=== PATIENT | female | born 1965 | race Caucasian/White ===

== ENCOUNTER 2016-04-25 16:29 | Outpatient (CLI) | payer OTHER | END 2016-04-25 16:30 | disposition home or self-care (01) | DX: R05 Cough (principal) ==

== ENCOUNTER 2016-09-21 08:05 | Outpatient (CLI) | payer OTHER ==
[2016-09-21 12:54] LABS: BASOPHILS % (AUTO) 0.4 %; EOSINOPHILS # (AUTO) 0.1 10^3/uL (0.0-0.7); EOSINOPHILS % (AUTO) 1.7 %; HCT - HEMATOCRIT 42.4 % (37.0-47.0); HGB - HEMOGLOBIN 14.4 g/dL (12.0-16.0); LYMPHOCYTES # (AUTO) 1.8 10^3/uL (1.5-3.5); LYMPHOCYTES % (AUTO) 37.3 %; MEAN CORPUSCULAR HEMOGLOBIN 30.8 pg (27.0-31.0); MEAN CORPUSCULAR HGB CONC 34.1 g/dL (32.0-36.0); MEAN CORPUSCULAR VOLUME 90.5 fL (81.0-99.0); MEAN PLATELET VOLUME 7.4 fL (7.9-10.8); MONOCYTES # (AUTO) 0.4 10^3/uL (0.0-1.0); MONOCYTES % (AUTO) 9.3 %; NEUTROPHILS # (AUTO) 2.4 10^3/uL (1.5-6.6); NEUTROPHILS % (AUTO) 51.3 %; NUCLEATED RED BLOOD CELLS AUTO 0.1 /100WBC; RED BLOOD COUNT 4.69 10^6/uL (4.20-5.40); RED CELL DISTRIBUTION WIDTH 13.4 % (12.0-15.0); UNCORRECTED WHITE BLOOD COUNT 4.7 x10^3/uL; WHITE BLOOD COUNT 4.7 x10^3/uL (4.8-10.8)
[2016-09-21 13:29] LABS: ALBUMIN/GLOBULIN RATIO 1.7 (1.0-2.2); BILIRUBIN,TOTAL 0.6 mg/dL (0.2-1.0); BUN - BLOOD UREA NITROGEN 21 mg/dL (6-20); CALCIUM 9.2 mg/dL (8.5-10.3); CARBON DIOXIDE - CO2 20 mmol/L (21-32); CHLORIDE 113 mmol/L (101-111); CHOL/HDL RATIO 2.8 (<4.4); CHOLESTEROL 155 mg/dL; CREATININE 0.9 mg/dL (0.4-1.0); GFR - MDRD 66 (>89); GLUCOSE 102 mg/dL (70-100); HDL CHOLESTEROL 56 mg/dL; LDL/HDL RATIO 1.6 (<4.4); POTASSIUM 3.7 mmol/L (3.5-5.0); SODIUM 140 mmol/L (135-145); TRIGLYCERIDES 56 mg/dL; VLDL CHOLESTEROL 11 mg/dL
== END 2016-09-21 08:06 ==
LOC: LAB.N 08:05
PROVIDERS: ATTEND Physician Assistant Medical
DX: Z00.00 Encounter for general adult medical examination without abnormal findings (principal); Z79.899 Other long term (current) drug therapy
CPT/HCPCS: 36415; 80053; 80061; 82306; 84443; 85025

== ENCOUNTER 2016-10-20 07:25 | Outpatient (CLI) | payer OTHER ==
--- NOTE | 2016-10-21 10:26 | Ultrasound Report ---
PELVIC ULTRASOUND WITH TRANSVAGINAL EXAM: 10/20/2016 Patient has right lower quadrant pain. TECHNIQUE: Transabdominal pelvic ultrasound performed for global evaluation. Transvaginal pelvic ul trasound performed for detailed evaluation. Real-time scanning performed and static images obtained. FINDINGS: Uterus has been removed. Right ovary measures 1.9 cm x 0.9 cm x 1.5 cm for a volume of 1.34 mL. Left ovary measures 1.8 cm x 1.0 cm x 1.3 cm for a volume of 1.22 mL. Both ovaries are normal in parenchymal pattern and appear mildly atrophic. IMPRESSION: PAST HISTORY OF A HYSTERECTOMY. BOTH OVARIES WERE WELL VISUALIZED AND NORMAL FOR PATIENT'S AGE. EACH OVARY APPEARS TO SHOW POSTMENOP AUSAL ATROPHY. JOB #: [id number] EXT JOB #:
== END 2016-10-20 07:26 | disposition home or self-care (01) ==
LOC: DI 07:25
PROVIDERS: ATTEND Physician Assistant Medical
DX: R10.31 Right lower quadrant pain (principal); Z90.710 Acquired absence of both cervix and uterus
CPT/HCPCS: 76830; 76856

== ENCOUNTER 2016-10-20 07:29 | Outpatient (CLI) | payer OTHER ==
--- NOTE | 2016-10-24 07:33 | Mammography Report ---
DIGITAL SCREENING MAMMOGRAM: 10/20/2016 CLINICAL INDICATION: A 50-year-old nulliparous patient with family history of breast cancer, for scre ening. COMPARISON: 10/2015, 09/2014, 06/2013, 12/2009, 11/2008, 10/2007. TECHNIQUE: Routine CC and MLO projections were obtained of the breasts. FINDINGS: The breasts again demonstrate scattered fibroglandular densities bilaterally. Punctate, ty pically benign calcifications are present. In the left upper outer central breast, there is a possibl e developing density. Further evaluation with spot compression views and possible ultrasound is recom mended. No mammographically suspicious findings are appreciated in the right breast. IMPRESSION: INCOMPLETE EXAMINATION. RECOMMENDATION: ADDITIONAL EVALUATION OF THE LEFT BREAST ABOVE. BIRADS CATEGORY 0-INCOMPLETE. STANDARD QUALIFYING STATEMENTS 1. This examination was reviewed with the aid of Computer-Aided Detection (CAD). 2. A negative or benign imaging report should not delay biopsy if clinically suspicious findings are present. Consider surgical consultation if warranted. More than 5% of cancers are not identified by i maging. 3. Dense breasts may obscure an underlying neoplasm. JOB #: [id number] EXT JOB #:[id number]
== END 2016-10-20 07:30 | disposition home or self-care (01) ==
LOC: DI 07:29
PROVIDERS: ATTEND Physician Assistant Medical
DX: Z12.31 Encounter for screening mammogram for malignant neoplasm of breast (principal); R92.8 Other abnormal and inconclusive findings on diagnostic imaging of breast; Z80.3 Family history of malignant neoplasm of breast
CPT/HCPCS: 77067

== ENCOUNTER 2016-11-16 11:00 | Outpatient (CLI) | payer OTHER ==
--- NOTE | 2016-11-17 09:00 | Ultrasound Report ---
REVISED: THIS REPORT WAS ORIGINALLY SIGNED ON 11/18/16 @ 1548. ORDERS LINKED ON 11/23/2016. LEFT BREAST DIGITAL DIAGNOSTIC MAMMOGRAM LEFT BREAST ULTRASOUND 11/16/2016 CLINICAL HISTORY: Asymptomatic 50-year-old female recalled from a screening mammogram 10/20/2016, for developing left breast asymmetry. The patient has a history of breast reduction. Family history of a mother with premenopausal breast cancer. MAMMOGRAM TECHNIQUE: Spot CC, ML, rolled, and true lateral views obtained. MAMMOGRAM FINDINGS: There is an irregular spiculated mass in the lateral anterior position spanning approximately 5 mm in maximal dimension. ULTRASOUND TECHNIQUE: A high frequency transducer was utilized to evaluate the lateral hemisphere. Instructor Flying static images obtained. FINDINGS: There is a hypoechoic, minimally-vascular, solid mass in the 3:30 axis, 4 cm from the nipple, measuring approximately 5 x 3 x 4 mm. This appears to correspond to the mammographic finding. --------- IMPRESSION: (BASED ON LEFT BREAST MAMMOGRAM AND ULTRASOUND) SUSPICIOUS FINDING. (BIRADS CATEGORY: 4) RECOMMENDATION: TARGETED PATHOLOGIC EVALUATION IS RECOMMENDED WITH ULTRASOUND GUIDANCE. NOTE: Follow-up post biopsy mammography is necessary to confirm correlation between the ultrasound and mammographic findings. Results and recommendations discussed with the patient. The office of Denise Mclean PA-C notified. Biopsy scheduled for 11/22/2016. STANDARD QUALIFYING STATEMENTS 1. This examination was reviewed with the aid of Computed-Aided Detection (CAD) . 2. A negative or benign imaging report should not delay biopsy if clinically suspicious findings are present. Consider surgical consultation if warranted. More than 5% of cancers are not identified by imaging. 3. Dense breasts may obscure an underlying neoplasm. JOB #: [id number] EXT JOB #: [id number] RENEE
== END 2016-11-16 11:01 | disposition home or self-care (01) ==
LOC: DI 11:00
PROVIDERS: ATTEND Physician Assistant Medical
DX: N63 Unspecified lump in breast (principal); Z80.3 Family history of malignant neoplasm of breast
CPT/HCPCS: 76642

== ENCOUNTER 2016-11-22 09:33 | Outpatient (CLI) | payer OTHER ==
--- NOTE | 2016-11-22 11:40 | Ultrasound Report ---
ULTRASOUND-GUIDED CORE NEEDLE BIOPSY LEFT BREAST NODULE: 11/22/2016 CLINICAL INDICATION: A 3-mm nodule at the 3:30 position of the left breast. FINDINGS: Informed consent was obtained. Using standard aseptic technique, both 1% buffered lidocai ne and Sensorcaine were injected into the left breast for local anesthesia. A small lauri was made in the skin with a #11 blade. A 12-gauge Celero vacuum-assisted device was used to obtain five specime ns. A Celero marker was placed in the biopsy cavity under ultrasound guidance. The patient was taken to a separate mammography machine, and a two-view digital mammogram was performed, documenting the marke r in the expected location and no significant post-biopsy hematoma. Of note, the mammographic and so nographic abnormalities do correlate. The wound was dressed and ice applied. The patient was observed for approximately 15 minutes, then w as discharged from [facility] in good condition following instructions on wound care and obta ining biopsy results. The patient was sent for histologic analysis. IMPRESSION: ULTRASOUND-GUIDED CORE NEEDLE BIOPSY OF THE LEFT BREAST. AN ADDENDUM WILL BE MADE TO THIS REPORT WHEN PATHOLOGY IS REVIEWED TO ESTABLISH CONCORDANCE. JOB #: [id number] EXT JOB #:[id number]
[2016-11-22 11:44] VITALS: BP 122/79
[2016-11-22] MEDS ORDERED: BUPIVACAINE 0.5%-EPI 1:200000 PF 10 ML VIAL SUBQ ONE (15:14)
[2016-11-22] MEDS ORDERED: BUFFERED LIDOCAINE 10 ML SYRINGE IU ONE (15:14)
== END 2016-11-22 09:34 | disposition home or self-care (01) ==
LOC: DI 09:33
PROVIDERS: ATTEND Physician Assistant Medical
DX: C50.912 Malignant neoplasm of unspecified site of left female breast (principal); Z17.0 Estrogen receptor positive status [ER+]
CPT/HCPCS: 19083

== ENCOUNTER 2016-12-12 07:52 | Outpatient (CLI) | payer OTHER ==
[2016-12-12] MEDS ORDERED: GADOBUTROL 10 MMOL/10 ML VIAL IVP ONE (08:46)
--- NOTE | 2016-12-12 12:48 | MRI Report ---
MRI BILATERAL BREASTS WITH AND WITHOUT CONTRAST: 12/12/2016 CLINICAL INDICATION: Newly diagnosed left breast cancer. TECHNIQUE: Using a dedicated breast coil, axial precontrast STIR, T1, dynamic postcontrast axial 3D images, axial 3D high-resolution images, and postcontrast diffusion-weighted images were obtained; 9 mL of Gadavist was administered intravenously. Postprocessing with dynamic contrast enhancement anal ysis and multiplanar reformations were performed with Greetz. FINDINGS: The breasts demonstrate minimal background parenchymal enhancement. RIGHT BREAST: No suspicious mass or abnormal enhancement is appreciated. Right axillary lymph nodes appear morphologically normal. LEFT BREAST: In the left central slightly lower outer breast, a focus of abnormal enhancement is see n, correlating with the site of the biopsy. The abnormal enhancement measures 9 x 5 x 6 mm, but this likely includes some postbiopsy changes. The abnormal enhancement demonstrates medium progressive p lateau uptake. The left axillary lymph nodes appear morphologically normal. There is no evidence of skin, nipple, or chest wall involvement. IMPRESSION: 1. BIOPSY-PROVEN LEFT BREAST CANCER, WITHOUT EVIDENCE OF SKIN, NIPPLE, OR CHEST WALL INVOLVEMENT. 2. NO EVIDENCE OF MULTICENTRIC OR MULTIFOCAL DISEASE. RECOMMENDATION: Surgical consultation for treatment planning. BI-RADS CATEGORY 6: Known malignancy. The patient has been instructed to obtain results from [facility] in 5 business days. COMMENT: Breast MRI is a highly sensitive examination, and has a cancer detection threshold down to approximately 5 mm; however, it only has moderate specificity. Although breast MRI has a high negati ve predictive value, appropriate clinical and mammographic followup are always necessary. MRI may mi ss less angiogenic tumors; therefore, it should not be used to avoid a biopsy which is otherwise clin ically indicated. Normal-appearing lymph nodes may contain microscopic tumor. Due to prone position ing, the described location of findings may differ from other modalities. JOB #: [id number] EXT JOB #:[id number]
== END 2016-12-12 07:53 | disposition home or self-care (01) ==
LOC: DI 07:52
PROVIDERS: ATTEND Physician Assistant Medical
DX: C50.512 Malignant neoplasm of lower-outer quadrant of left female breast (principal)
CPT/HCPCS: 77059; A9585

== ENCOUNTER 2017-01-09 07:53 | Day surgery (SDC) | payer OTHER ==
[~2017-01-09 07:53] MED LIST: ceFAZolin 2 GM/50 ML 2 GM/50 ML BAG IV ONE
[2017-01-09] MEDS ORDERED: LACTATED RINGERS 1,000 ML IV ONE (08:18)
[2017-01-09] MEDS ORDERED: BUPIVACAINE 0.5%-EPI 1:200000 PF 10 ML VIAL SUBQ ONE (10:26)
[2017-01-09] MEDS ORDERED: BUFFERED LIDOCAINE 10 ML SYRINGE IU ONE (10:26)
--- NOTE | 2017-01-09 11:09 | Nuclear Medicine Report ---
LEFT BREAST INJECTION FOR SENTINEL LYMPH NODE IDENTIFICATION: 01/09/2017 CLINICAL INDICATION: Left breast cancer. FINDINGS: A total of 1.6 mCi technetium-99m filtered sulfur colloid in buffered lidocaine was inject ed into the left subareolar breast for sentinel lymph node identification. Due to camera malfunction , no images were obtained. IMPRESSION: LEFT BREAST INJECTION FOR SENTINEL LYMPH NODE IDENTIFICATION. JOB #: [id number] EXT JOB #:[id number]
[2017-01-09] MEDS ORDERED: BUPIVACAINE 0.5%-EPI 1:200000 PF 30 ML VIAL SUBQ ONE (11:50)
[2017-01-09] MEDS ORDERED: LIDOCAINE 1% 50 ML MDV SUBQ ONE (11:50)
[2017-01-09] MEDS ORDERED: KETOROLAC 30 MG/ML VIAL IVP ONE (12:30)
[2017-01-09] MEDS ORDERED: DEXAMETHASONE 10 MG/ML VIAL IVP ONE (12:30)
[2017-01-09] MEDS ORDERED: PROPOFOL 200 MG/20 ML VIAL IVP ONE (12:30)
[2017-01-09] MEDS ORDERED: LIDOCAINE-MPF 2% 5 ML VIAL IM ONE (12:30)
[2017-01-09] MEDS ORDERED: ONDANSETRON 4 MG/2 ML VIAL IVP ONE (12:30)
[2017-01-09] MEDS ORDERED: fentaNYL 100 MCG/2 ML VIAL IVP ONE (12:30)
[2017-01-09] MEDS ORDERED: METOCLOPRAMIDE 10 MG/2 ML VIAL IVP ONE (12:30)
[2017-01-09] MEDS ORDERED: ceFAZolin 2 GM/50 ML BAG IV ONE (12:30)
--- NOTE | 2017-01-09 14:31 | Mammography Report ---
LEFT MAMMOGRAPHICALLY GUIDED WIRE NEEDLE LOCALIZATION: 01/09/2017 CLINICAL INDICATION: Left breast cancer. FINDINGS: Following obtaining informed consent, the patient's left breast was positioned from a late ral approach. Buffered lidocaine and Marcaine were injected for local anesthesia. A 5-cm [place] need le was placed at the site of concern. Needle positioning was confirmed, the needle secured, and the patient was transferred to the operating room in stable condition. SPECIMEN RADIOGRAPH: Specimen radiograph initially demonstrated inclusion of the hookwire, but not t he marker. Findings were discussed with Dr. Wiggins in the operating room, and a second specimen wa s obtained, which again did not demonstrate the marker. The initial specimen appears to contain the primary carcinoma. Position was noted on the pathology request, and both specimens were submitted. IMPRESSION: WIRE LOCALIZATION OF LEFT BREAST LESION. THE BIOPSY MARKER WAS NOT INCLUDED IN THE INIT IAL SPECIMEN OR THE FOLLOWUP SPECIMEN. FINDINGS DISCUSSED WITH DR. WIGGINS IN THE OPERATING ROOM. JOB #: [id number] EXT JOB #:[id number]
[2017-01-09 14:38] VITALS: BP 131/76
--- NOTE | 2017-01-10 13:24 | OPERATIVE REPORT ---
DATE OF SURGERY: 01/09/2017 00:00:00 SURGEON: Anila Wiggins MD. ANESTHESIA: General. PREOPERATIVE DIAGNOSIS: Left breast invasive cancer. POSTOPERATIVE DIAGNOSES: Left breast invasive cancer. INDICATION FOR PROCEDURE: Left breast cancer. PROCEDURE PERFORMED: Left sentinel lymph node biopsy and left wire localization partial mastectomy. FINDINGS: After obtaining informed consent from the patient and after her undergoing sentinel lymph node mapping and needle localization, she was brought into the operating room and positioned on the operating table in the supine position, taking note of pressure points. She was intubated by Anesthesia. She was administered perioperative antibiotics. A time-out was then taken according to protocol, and 5 mL of Methylene blue was injected in the periareolar region and the breast massaged for 5 minutes. She was then prepped and draped in the usual sterile fashion. An infra-axillary 3 cm incision was created and deepened down through the subcutaneous tissue through the clavipectoral fascia. The axillary fat pad was encountered. The NeoProbe was utilized to encounter positive lymph nodes. No blue dye was seen; however, the patient did have a breast reduction in the distant past and this could have affected the flow of methylene blue. Three sentinel lymph nodes were found and were passed off as specimens. None were noted to be blue. All were noted to be NeoProbe positive. The axilla was then palpated for any enlarged lymph nodes and none were found. The axilla was then packed and attention turned towards the left breast. Her lesion was noted to be in the 3:30 position, 4 cm from the nipple. This was marked out and the planned incision was marked. A rhomboid shaped skin incision was created overlying the site of the cancer. A 15 blade was used to make my incision. I then worked my way down through the breast tissue creating skin flaps circumferentially. The wire was then encountered inferiorly. The needle was removed from the wire and the wire withdrawn into the incision. I then continued to circumferentially dissect around the wire down to the level of the pectoralis fascia. The entire specimen was then removed and was marked with a long stitch placed laterally and a short medially. It was passed off for mammographic confirmation of the lesion. Upon evaluation mammographically, the lesion correlating with the malignancy was seen; however, no clip was identified. I reinspected the operative field, palpating to try to feel for the clip and was unable to do so. The ultrasound was then brought into the operating room to attempt to identify the site of the clip, and this again was unsuccessful. The margin inferior and medial to the previous lumpectomy site was dissected further, as this was likely my closest margin. An additional tissue sample was removed and marked it with a long strand laterally and short strand medially and passed off. Mammography did not demonstrate any clip in the specimen. After careful inspection of the cavity, I was unable to find any clip. This cavity was copiously irrigated and hemostasis was noted to be achieved. Both incisions were then closed. The axillary incision was closed with 3-0 Vicryl and 4-0 Monocryl. The breast incision was closed with 3-0 vicryl and 4-0 monocryl. Dermabond was applied. The patient was extubated and taken to the recovery room in stable condition. ESTIMATED BLOOD LOSS: 5 mL. COMPLICATIONS: None. SPECIMENS: Three axillary sentinel lymph nodes and left partial mastectomy. POSTOPERATIVE DIAGNOSIS: Invasive breast cancer. JOB #: [id number] EXT JOB #:[id number] RENEE
== END 2017-01-09 07:54 | disposition home or self-care (01) ==
LOC: DI 07:53
PROVIDERS: ATTEND Surgery
PROC: 07B60ZX Excision of Left Axillary Lymphatic, Open Approach, Diagnostic (ICD-10-PCS; 2017-01-09)
PROC: 0HBU0ZZ Excision of Left Breast, Open Approach (ICD-10-PCS; principal; 2017-01-09 11:00)
DX: C50.512 Malignant neoplasm of lower-outer quadrant of left female breast (principal); Z17.0 Estrogen receptor positive status [ER+]; I10 Essential (primary) hypertension
CPT/HCPCS: 19281; 19301; 38525; 76098; 78195; A9541; J0690; J7120

== ENCOUNTER 2017-01-30 09:05 | Emergency (ER) | payer OTHER ==
[2017-01-30 09:16] VITALS: BP 198/84
--- NOTE | 2017-01-30 10:07 | ED Physician Documentation ---
History of Present Illness - Stated complaint Stated Complaint: POST SURG COMPLICATION - Chief complaint Chief Complaint: Wound - Additonal information Additional information: hx from pt 51 f s/p L lumpectomy 01/[address]iggins has been doing well today incision opened and there was bloody drainage no fever otherwise feeling well went to surgical office and was advised no doctors in today went to PMD office and was advised to come to the ER Review of Systems Constitutional: denies: Fever Skin: reports: Laceration (s) PD PAST MEDICAL HISTORY - Past Medical History Past Medical History: Yes Cardiovascular: High cholesterol Respiratory: Asthma, Pneumonia Neuro: Other Endocrine/Autoimmune: None GI: Colon polyps : None HEENT: Chronic vision loss, Chronic sinusitis Psych: None Musculoskeletal: Osteoarthritis Derm: Rosacea Other Past Medical History: intracrainial HTN, Breast CA - Past Surgical History Past Surgical History: Yes General: Colonoscopy /PREPARED FOODS ASSOCIATE: Hysterectomy, Breast reduction, Other HEENT: Tonsil/Adenoidectomy - Present Medications Home Medications: Ambulatory Orders Medication Instructions Recorded Confirmed Cholecalciferol (Vitamin D3) 4,000 unit PO DAILY 12/10/15 01/24/17 [Vitamin D3] Doxycycline Monohydrate 50 mg PO DAILY 12/10/15 01/24/17 Pravastatin [Pravachol] 10 mg PO DAILY 12/10/15 01/24/17 acetaZOLAMIDE ER [Diamox ER] 500 mg PO BID 12/10/15 01/24/17 Cyanocobalamin (Vitamin B-12) 2,000 mcg PO DAILY PM 01/03/17 01/24/17 [Vitamin B-12] Albuterol 2.5 mg INH Q4H PRN 01/04/17 01/24/17 Epinephrine [Epipen 2-Yan] 1 each IM PRN PRN 01/04/17 01/24/17 - Allergies Allergies/Adverse Reactions: Allergies Allergy/AdvReac Type Severity Reaction Status Date / Time azithromycin [From Zithromax] Allergy Itching Verified 01/09/17 08:12 bee venom protein (honey bee) Allergy Unknown Verified 01/04/17 15:22 dust AdvReac Unknown Uncoded 01/04/17 15:22 mold AdvReac Unknown Uncoded 01/04/17 15:22 - Social History Does the pt smoke?: No Smoking Status: Never smoker Does the pt drink ETOH?: No Does the pt have substance abuse?: No - Immunizations Immunizations are current?: Yes PD ED PE NORMAL - Vitals Vital signs reviewed: Yes - Cardiac Cardiac: RRR - Respiratory Respiratory: No respiratory distress, Clear bilaterally - Free text exam Free text exam: L lateral breast approx 3 cm open incision with some bloody dc but no erythema or purulence Results - Vitals Vitals: Vital Signs - 24 hr 01/30/17 09:13 Temperature 36.2 C L Heart Rate 92 Respiratory 16 Rate Blood Pressure 198/84 H O2 Saturation 98 Oxygen O2 Source Room air PD MEDICAL DECISION MAKING - ED course ED course: seen by Dr Wiggins and steri stripped Departure - Departure Disposition: 01 Home, Self Care Clinical Impression: Wound dehiscence Condition: Good Comments: May shower. Do not pull or remove the steri - strips - they will gradually fall off on their own. Follow up Dr Wiggins as needed Also your blood pressure was high - please follow up with your PMD to get it rechecked
== END 2017-01-30 10:45 | disposition home or self-care (01) ==
LOC: ED 09:05
DX: T81.31XA Disruption of external operation (surgical) wound, not elsewhere classified, initial encounter (principal); E78.00 Pure hypercholesterolemia, unspecified; R03.0 Elevated blood-pressure reading, without diagnosis of hypertension; C50.919 Malignant neoplasm of unspecified site of unspecified female breast
CPT/HCPCS: 99282; 99283

== ENCOUNTER 2017-02-16 13:26 | Outpatient (CLI) | payer BC ==
--- NOTE | 2017-02-16 18:03 | Ultrasound Report ---
LEFT BREAST ULTRASOUND: 02/16/2017 CLINICAL INDICATION: Palpable abnormality medial to left nipple. TECHNIQUE: Real-time scanning was performed with in store marketing representative static images obtained. Ultrasound of the palpable abnormality identified by the patient was performed. The patient is 5 wee ks status post left lumpectomy for invasive ductal carcinoma. At the site of the palpable abnormality, there is a 3.5 x 3.4 x 1.6 cm hyperechoic lobulated, avascul ar lesion, most compatible with fat necrosis given the clinical scenario. No sonographically suspici ous findings are identified. IMPRESSION: LIKELY FAT NECROSIS CORRELATING WITH THE PALPABLE ABNORMALITY. RECOMMENDATION: CONTINUED CLINICAL FOLLOWUP. BIRADS CATEGORY: 2, BENIGN FINDINGS. JOB #: [id number] EXT JOB #:
== END 2017-02-16 13:27 | disposition home or self-care (01) ==
LOC: DI 13:26
PROVIDERS: ATTEND Surgery
DX: N63.22 Unspecified lump in the left breast, upper inner quadrant (principal)
CPT/HCPCS: 76642

== ENCOUNTER 2017-09-28 14:18 | Outpatient (CLI) | payer OTHER ==
--- NOTE | 2017-09-28 15:08 | Mammography Report ---
Procedure Date: 09/28/2017 Accession Number: [id number] / [id number] Procedure: YASMIN - Diagnostic Dig Bilat CPT Code: FULL RESULT: EXAM: Diagnostic Dig Bilat DATE: 09/28/2017 2:58 PM CLINICAL HISTORY: 51-year-old with personal history of left breast cancer status post lumpectomy and radiation therapy, family history of breast cancer, nulliparous patient TECHNIQUE: Bilateral CC and MLO views, left true lateral and spot magnification views COMPARISON: 01/09/2017, 11/22/2016, 11/16/2016, 10/20/2016, 10/09/2015, 09/22/2014, 06/18/2013 FINDINGS: The breasts demonstrate scattered fibroglandular densities bilaterally. Postoperative and posttreatment changes are seen in the left breast. Coarse and punctate, typically benign calcifications are present. IMPRESSION: Probable benign postoperative and posttreatment changes. RECOMMENDATION: Diagnostic left mammogram in 6 months, to ensure stability. BIRADS CATEGORY 3 probable benign findings STANDARD QUALIFYING STATEMENTS: 1. This examination was reviewed with the aid of Computer-Aided Detection (CAD). 2. A negative or benign imaging report should not delay biopsy if clinically suspicious findings are present. Consider surgical consultation if warrented. More than 5% of cancers are not identified by imaging. 3. Dense breasts may obscure an underlying neoplasm.
== END 2017-09-28 14:19 | disposition home or self-care (01) ==
LOC: DI 14:18
PROVIDERS: ATTEND Physician Assistant Medical
DX: C50.912 Malignant neoplasm of unspecified site of left female breast (principal); Z80.3 Family history of malignant neoplasm of breast
CPT/HCPCS: 77066

== ENCOUNTER 2017-11-14 08:00 | Outpatient (CLI) | payer OTHER ==
[2017-11-14 13:59] LABS: BASOPHILS % (AUTO) 0.5 %; EOSINOPHILS # (AUTO) 0.2 10^3/uL (0.0-0.7); EOSINOPHILS % (AUTO) 4.2 %; LYMPHOCYTES # (AUTO) 1.5 10^3/uL (1.5-3.5); LYMPHOCYTES % (AUTO) 30.8 %; MEAN CORPUSCULAR HEMOGLOBIN 31.4 pg (27.0-31.0); MEAN CORPUSCULAR HGB CONC 33.8 g/dL (32.0-36.0); MEAN PLATELET VOLUME 7.2 fL (7.9-10.8); MONOCYTES # (AUTO) 0.4 10^3/uL (0.0-1.0); NEUTROPHILS # (AUTO) 2.7 10^3/uL (1.5-6.6); NEUTROPHILS % (AUTO) 55.5 %; PLT - PLATELET COUNT 260 10^3/uL (130-450); RED BLOOD COUNT 4.47 10^6/uL (4.20-5.40); RED CELL DISTRIBUTION WIDTH 13.4 % (12.0-15.0); WHITE BLOOD COUNT 4.9 x10^3/uL (4.8-10.8)
[2017-11-14 14:15] LABS: ALBUMIN 4.3 g/dL (3.2-5.5); ALBUMIN/GLOBULIN RATIO 1.5 (1.0-2.2); ALKALINE PHOSPHATASE 60 IU/L (42-121); ALT ALANINE AMINOTRANSFERASE 19 IU/L (10-60); AST ASPARTATE AMINOTRANSFERASE 18 IU/L (10-42); BILIRUBIN,TOTAL 0.9 mg/dL (0.2-1.0); BUN - BLOOD UREA NITROGEN 21 mg/dL (6-20); CALCIUM 9.1 mg/dL (8.5-10.3); CARBON DIOXIDE - CO2 22 mmol/L (21-32); CHLORIDE 108 mmol/L (101-111); CHOL/HDL RATIO 2.5 (<4.4); CHOLESTEROL 172 mg/dL; GFR - MDRD 58 (>89); GLUCOSE 105 mg/dL (70-100); HDL CHOLESTEROL 68 mg/dL; LDL CHOLESTEROL,CALCULATED 94 mg/dL; LDL/HDL RATIO 1.4 (<4.4); SODIUM 138 mmol/L (135-145); TOTAL PROTEIN 7.1 g/dL (6.7-8.2); VLDL CHOLESTEROL 10 mg/dL
[2017-11-15 13:11] LABS: HEPATITIS C ANTIBODY NON-REACTIVE (NON-REACTIVE)
== END 2017-11-14 08:01 | disposition home or self-care (01) ==
LOC: LAB.N 08:00
PROVIDERS: ATTEND Physician Assistant Medical
DX: Z00.00 Encounter for general adult medical examination without abnormal findings (principal); Z13.818 Encounter for screening for other digestive system disorders; Z79.899 Other long term (current) drug therapy; E78.2 Mixed hyperlipidemia; R73.9 Hyperglycemia, unspecified; I10 Essential (primary) hypertension
CPT/HCPCS: 36415; 80053; 80061; 83721; 84443; 85025; 86803

== ENCOUNTER 2018-04-18 09:36 | Outpatient (CLI) | payer OTHER ==
--- NOTE | 2018-04-18 11:14 | Mammography Report ---
Reason: BREAST CANCER Procedure Date: 04/18/2018 Accession Number: [id number] / [id number] Procedure: YASMIN - Diagnostic Dig LT CPT Code: FULL RESULT: EXAM: Diagnostic Dig LT DATE: 04/18/2018 10:42 AM CLINICAL HISTORY: Status post lumpectomy for breast cancer 2016 TECHNIQUE: Unilateral left CC, ML, and MLO projections. COMPARISON: 09/28/2017, 11/22/2016, 11/16/2016 and 10/20/2016 FINDINGS: There are scattered fibroglandular densities. Post therapeutic changes in the left breast are stable. No new suspicious micro-calcifications , skin thickening, architectural distortion, dominant mass, or interval change. IMPRESSION: Benign findings RECOMMENDATION: Bilateral mammography in 6 months. BIRADS CATEGORY 2: Benign findings STANDARD QUALIFYING STATEMENTS: 1. This examination was reviewed with the aid of Computer-Aided Detection (CAD). 2. A negative or benign imaging report should not delay biopsy if clinically suspicious findings are present. Consider surgical consultation if warrented. More than 5% of cancers are not identified by imaging. 3. Dense breasts may obscure an underlying neoplasm.
== END 2018-04-18 09:37 | disposition home or self-care (01) ==
LOC: DI 09:36
PROVIDERS: ATTEND Physician Assistant Medical
DX: Z08 Encounter for follow-up examination after completed treatment for malignant neoplasm (principal); Z85.3 Personal history of malignant neoplasm of breast

== ENCOUNTER 2018-04-18 09:39 | Outpatient (CLI) | payer OTHER ==
--- NOTE | 2018-04-23 09:47 | DEXA Report ---
Reason: POSTMENOPAUSAL Procedure Date: 04/18/2018 Accession Number: [id number] / [id number] Procedure: DEX - Dexa Spine and/or Hip CPT Code: FULL RESULT: EXAM: Dexa Spine and/or Hip DATE: 04/18/2018 11:02 AM CLINICAL HISTORY: POSTMENOPAUSAL TECHNIQUE: Dual energy x-ray absorptiometry (DXA) was performed on a LIBCAST System. Regions measured are the AP Spine, femoral neck, and if needed forearm. COMPARISON: None. In accordance with the International Society for Clinical Densitometry (ISCD) guidelines, data from previous exams may be reanalyzed using current recommendations and techniques. This is done to allow a more accurate basis for comparison with the current study. FINDINGS: The data for the lumbar spine is as follows: BMD (g/cm/cm) T-SCORE Z-SCORE REGION L1 1.355 1.9 1.6 L2 1.469 2.2 1.9 L3 1.518 2.7 2.3 L4 1.622 3.5 3.2 TOTAL 1.498 2.7 2.3 NOTE: All evaluable vertebrae are used for classification The data for the hip is as follows: BMD (g/cm/cm) T-SCORE Z-SCORE REGION Neck 1.187 1.1 1.4 TOTAL 1.244 1.9 1.7 NOTE: The femoral neck or total proximal femur, whichever is lowest, is used for classification. IMPRESSION: THE WHO CLASSIFICATION BASED ON THE INTERNATIONAL REFERENCE STANDARD IS NORMAL. THE FRACTURE RISK IS NOT INCREASED. RECOMMENDATION: Patients with diagnosis of osteoporosis or osteopenia should have regular bone mineral density assessment. For those eligible for Medicare, routine testing is allowed once every 2 years. Testing frequency can be increased for patients who have rapidly progressing disease or for those who are receiving medical therapy to restore bone mass. COMMENT: World Health Organization (WHO) definitions for osteoporosis and osteopenia: NORMAL BMD: T-score at -1.0 or higher, fracture risk is low OSTEOPENIA BMD: T-score between -1.0 and -2.5, fracture risk is increased. OSTEOPOROSIS BMD: T-score at -2.5 or lower, fracture risk is high. National Osteoporosis Foundation recommends: 1. Obtain adequate dietary calcium (at least 1200 mg per day) and vitamin D (400-800 international units per day). 2. Participate, as appropriate, in regular weightbearing and muscle-strengthening exercise. 3. Avoid tobacco use and reduce alcohol and caffeine intake. 4. For more detailed information see the website at www.NOF.org.
== END 2018-04-18 09:40 | disposition home or self-care (01) ==
LOC: DI 09:39
PROVIDERS: ATTEND Physician Assistant Medical
DX: Z78.0 Asymptomatic menopausal state (principal)
CPT/HCPCS: 77080

== ENCOUNTER 2018-05-11 09:30 | Outpatient (CLI) | payer OTHER ==
[2018-05-11 12:10] LABS: ALBUMIN 4.3 g/dL (3.2-5.5); ALBUMIN/GLOBULIN RATIO 1.5 (1.0-2.2); BILIRUBIN,TOTAL 0.6 mg/dL (0.2-1.0); CALCIUM 9.5 mg/dL (8.5-10.3); TOTAL PROTEIN 7.1 g/dL (6.7-8.2)
[2018-05-11 12:12] LABS: BILIRUBIN,URINE NEGATIVE (NEGATIVE); GLUCOSE, URINE (UA) NEGATIVE (NEGATIVE); KETONES,URINE (UA) NEGATIVE (NEGATIVE); LEUKOCYTE ESTERASE, URINE NEGATIVE (NEGATIVE); NITRITE,URINE NEGATIVE (NEGATIVE); OCCULT BLOOD,URINE NEGATIVE (NEGATIVE); PH,URINE 7.5 PH (5.0-7.5); PROTEIN,URINE NEGATIVE (NEGATIVE); UROBILINOGEN,URINE 0.2 (NORMAL) E.U./dL (NORMAL)
[2018-05-11 12:24] LABS: BACTERIA,URINE Few /HPF (None Seen); CLARITY,URINE CLEAR (CLEAR); RBC,URINE 0-5 /HPF (0-5); SQUAMOUS EPITHELIAL CELL,UR RARE Squamous (<= Few)
== END 2018-05-11 23:59 | disposition home or self-care (01) ==
LOC: LAB.R 09:30
PROVIDERS: ATTEND Physician Assistant Medical
DX: N28.9 Disorder of kidney and ureter, unspecified (principal)
CPT/HCPCS: 80053; 81001; 87086

== ENCOUNTER 2018-11-05 | Outpatient (CLI) | payer OTHER | END 2018-11-05 07:36 | disposition home or self-care (01) ==

== ENCOUNTER 2019-04-15 09:22 | Outpatient (CLI) | payer OTHER ==
--- NOTE | 2019-04-15 14:22 | Mammography Report ---
Reason: 6 MONTH FOLLOW UP LEFT BREAST CA Procedure Date: 04/15/2019 Accession Number: [id number] / [id number] Procedure: YASMIN - Diagnostic Dig LT CPT Code: Final Report FULL RESULT: EXAM: Diagnostic Dig LT DATE: 04/15/2019 10:01 AM CLINICAL HISTORY: Diagnostic examination. Personal history of left breast cancer status post lumpectomy and radiation. Family history of breast cancer and personal history of nulliparity. TECHNIQUE: (L) - Left CC and MLO views were obtained. ML images are obtained. COMPARISON: 10/23/2018 through 12/21/2009. PARENCHYMAL PATTERN: (A) - The breast(s) demonstrate(s) scattered fibroglandular densities. FINDINGS: There are coarse typically benign calcifications. The prior lumpectomy site postsurgical changes are again seen. No suspicious interval change is detected. There are no suspicious masses, calcifications, or areas of distortion. IMPRESSION: Benign findings. BI-RADS category 2. RECOMMENDATION: (ANNUAL) - Recommend routine annual screening mammography. BI-RADS CATEGORY: (2) - Benign Findings. STANDARD QUALIFYING STATEMENTS: 1. This examination was not reviewed with the aid of Computer-Aided Detection (CAD). 2. A negative or benign imaging report should not preclude biopsy if clinically suspicious findings are present. 3. Dense breasts may obscure an underlying neoplasm. 4. This examination was reviewed with the aid of 3D breast imaging (tomosynthesis).
== END 2019-04-15 09:23 | disposition home or self-care (01) ==
LOC: DI 09:22
PROVIDERS: ATTEND Internal Medicine Hematology & Oncology
DX: C50.912 Malignant neoplasm of unspecified site of left female breast (principal)

== ENCOUNTER 2019-10-21 16:40 | Outpatient (CLI) | payer OTHER ==
--- NOTE | 2019-10-22 17:43 | Ultrasound Report ---
PROCEDURE: Pelvic Limited or F/U INDICATIONS: RLQ PAIN. Chronic right inguinal pain. TECHNIQUE: Real-time transabdominal scanning was performed of the inguinal region, with image documentation. COMPARISON: None. FINDINGS: Evaluation of the right inguinal region demonstrates no discrete hernia. Valsalva maneuver was also p erformed without an associated hernia visualized. IMPRESSION: 1. No inguinal hernia identified sonographically. Reviewed by: Davi Taylor MD on 10/22/2019 5:42 PM PDT Approved by: Davi Taylor MD on 10/22/2019 5:42 PM PDT Station ID: [id number]
== END 2019-10-21 16:41 | disposition home or self-care (01) ==
LOC: DI 16:40
PROVIDERS: ATTEND Nurse Practitioner
DX: R10.31 Right lower quadrant pain (principal)
CPT/HCPCS: 76857

== ENCOUNTER 2020-01-03 07:38 | Outpatient (CLI) | payer OTHER ==
[2020-01-03 08:08] LABS: BASOPHILS % (AUTO) 0.4 %; EOSINOPHILS # (AUTO) 0.1 10^3/uL (0.0-0.7); HGB - HEMOGLOBIN 14.4 g/dL (12.0-16.0); LYMPHOCYTES # (AUTO) 1.4 10^3/uL (1.5-3.5); LYMPHOCYTES % (AUTO) 30.4 %; MEAN CORPUSCULAR HEMOGLOBIN 30.9 pg (27.0-31.0); MEAN CORPUSCULAR HGB CONC 32.6 g/dL (32.0-36.0); MEAN CORPUSCULAR VOLUME 94.8 fL (81.0-99.0); MEAN PLATELET VOLUME 8.8 fL (7.9-10.8); MONOCYTES # (AUTO) 0.4 10^3/uL (0.0-1.0); MONOCYTES % (AUTO) 8.5 %; NEUTROPHILS # (AUTO) 2.7 10^3/uL (1.5-6.6); NEUTROPHILS % (AUTO) 57.5 %; PLT - PLATELET COUNT 233 10^3/uL (130-450); RED BLOOD COUNT 4.66 10^6/uL (4.20-5.40); RED CELL DISTRIBUTION WIDTH 13.2 % (12.0-15.0); WHITE BLOOD COUNT 4.7 x10^3/uL (4.8-10.8)
[2020-01-03 08:26] LABS: ALBUMIN 4.4 g/dL (3.2-5.5); ALBUMIN/GLOBULIN RATIO 1.7 (1.0-2.2); ALKALINE PHOSPHATASE 56 IU/L (42-121); ALT ALANINE AMINOTRANSFERASE 19 IU/L (10-60); AST ASPARTATE AMINOTRANSFERASE 15 IU/L (10-42); BILIRUBIN,TOTAL 0.6 mg/dL (0.2-1.0); BUN - BLOOD UREA NITROGEN 29 mg/dL (6-20); CALCIUM 9.1 mg/dL (8.5-10.3); CARBON DIOXIDE - CO2 19 mmol/L (21-32); CHLORIDE 114 mmol/L (101-111); CHOL/HDL RATIO 2.7 (<4.4); CHOLESTEROL 152 mg/dL; CREATININE 1.2 mg/dL (0.4-1.0); GLUCOSE 116 mg/dL (70-100); HDL CHOLESTEROL 57 mg/dL; LDL CHOLESTEROL,CALCULATED 87 mg/dL; LDL/HDL RATIO 1.5 (<4.4); SODIUM 140 mmol/L (135-145); VLDL CHOLESTEROL 8 mg/dL
== END 2020-01-03 07:39 | disposition home or self-care (01) ==
LOC: LAB 07:38
PROVIDERS: ATTEND Nurse Practitioner
DX: R73.9 Hyperglycemia, unspecified (principal); E78.5 Hyperlipidemia, unspecified; I10 Essential (primary) hypertension
CPT/HCPCS: 36415; 80053; 80061; 83721; 85025

== ENCOUNTER 2020-01-04 08:37 | Outpatient (CLI) | payer OTHER ==
[2020-01-04] MEDS ORDERED: IOVERSOL 320 100 ML VIAL IVP ONE ×2 (08:49→10:08)
[2020-01-04] MEDS ORDERED: IOVERSOL 320 50 ML VIAL ONE (08:49)
[2020-01-04] MEDS ORDERED: IOVERSOL 320 50 ML VIAL PO ONE (10:08)
--- NOTE | 2020-01-04 16:12 | CT Report ---
PROCEDURE: Abdomen/Pelvis W INDICATIONS: RLQ PAIN CONTRAST: IV CONTRAST: Optiray 320 ml: 100 PO CONTRAST: Optiray 320 ml50 TECHNIQUE: After the administration of 320 Optiray intravenous contrast and oral contrast, 5 mm thick sections a cquired from the diaphragms to the symphysis. 5 mm thick coronal and sagittal reformats were acquire d. For radiation dose reduction, the following was used: automated exposure control, adjustment of mA and/or kV according to patient size. COMPARISON: None. FINDINGS: Image quality: Excellent. ABDOMEN: Lung bases: Lung bases are clear. Heart size is normal. Solid organs: Liver and spleen are normal in size and enhancement. Gallbladder Biliary system is non dilated. Pancreas enhances normally. No adrenal nodules. Kidneys demonstrate normal size an d enhancement, without hydronephrosis. There is a 4 mm stone in the superior left kidney. There is a 3 mm stone in the mid right kidney and punctate stone in the inferior right kidney. Peritoneum and bowel: Bowel loops demonstrate normal wall thickness and caliber. Appendix is normal . There is diverticulosis of the descending and sigmoid colon. There is a circumscribed lobule of fat in the lower abdomen adjacent to sigmoid colon which likely reflects sequela of remote epiploic appe ndagitis. No current edema demonstrated. No free fluid or air. Nodes and vessels: No retroperitoneal or mesenteric adenopathy by size criteria. Aorta and inferior vena cava are normal in size. Scattered vascular calcification of the aorta. Miscellaneous: No ventral hernias. PELVIS: Genitourinary: Bladder wall thickness is normal. Miscellaneous: No inguinal hernias or adenopathy. Bones: No suspicious bony lesions. No vertebral body compression fractures. IMPRESSION: 1. Normal appendix. 2. Bilateral nonobstructing kidney stones. 3. Colonic diverticulosis. 4. Circumscribed lobule of fat in the lower abdomen adjacent to sigmoid colon which likely reflects s equela of remote epiploic appendagitis, of doubtful current clinical significance. Reviewed by: Siva Melendez on 01/04/2020 3:10 PM AKHANY Approved by: Siva Melendez on 01/04/2020 3:10 PM AKHANY Station ID: [id number]
== END 2020-01-04 08:38 | disposition home or self-care (01) ==
LOC: DI 08:37
PROVIDERS: ATTEND Nurse Practitioner
DX: R10.31 Right lower quadrant pain (principal); K57.30 Diverticulosis of large intestine without perforation or abscess without bleeding; N20.0 Calculus of kidney; R73.9 Hyperglycemia, unspecified; E78.5 Hyperlipidemia, unspecified; I10 Essential (primary) hypertension
CPT/HCPCS: 74177; Q9967

== ENCOUNTER 2020-02-03 12:08 | Outpatient (CLI) | payer OTHER ==
[2020-02-03 12:32] LABS: ALBUMIN 4.6 g/dL (3.2-5.5); ALBUMIN/GLOBULIN RATIO 1.8 (1.0-2.2); BILIRUBIN,TOTAL 0.5 mg/dL (0.2-1.0); CALCIUM 9.2 mg/dL (8.5-10.3); TOTAL PROTEIN 7.2 g/dL (6.7-8.2)
[2020-02-03 13:11] LABS: HEMOGLOBIN A1c% 5.4 % (4.27-6.07)
== END 2020-02-03 12:09 | disposition home or self-care (01) ==
LOC: LAB 12:08
PROVIDERS: ATTEND Nurse Practitioner
DX: R73.9 Hyperglycemia, unspecified (principal); Z79.899 Other long term (current) drug therapy
CPT/HCPCS: 36415; 80053; 83036

== ENCOUNTER 2020-02-03 13:59 | Outpatient (CLI) | payer OTHER ==
--- NOTE | 2020-02-04 14:37 | Mammography Report ---
BILATERAL DIGITAL SCREENING MAMMOGRAM 3D/2D: 02/03/2020 CLINICAL: Routine screening. Family history of breast cancer. Comparison is made to exams dated: 04/15/2019 mammogram, 10/23/2018 mammogram, 04/18/2018 mammogram, mammogram, 02/16/2017 ultrasound, and 01/09/2017 localization - [facility]. There are scattered fibroglandular elements in both breasts. There are benign cysts in the left breast. There also are benign calcifications in the left breast. Additionally, there are benign post operative findings in the left breast. No significant masses, calcifications, or other findings are seen in either breast. There has been no significant interval change. IMPRESSION: BENIGN There is no mammographic evidence of malignancy. A 1 year screening mammogram is recommended. This exam was interpreted at Station ID: [id number]. NOTE: For mammograms, a report in lay terms will be sent to the patient. Approximately 15% of breast malignancies will not be visualized mammographically. In the management of a palpable breast mass, a negative mammogram must not discourage biopsy of a clinically suspicious lesion. Electronically Signed By: Sapphire lai/lauren:02/03/2020 17:48:52 ACR BI-RADS Category 2: Benign Finding(s) 3342F PARENCHYMAL PATTERN: (A) - The breast(s) demonstrate(s) scattered fibroglandular densities. BI-RADS CATEGORY: (2) - 2 RECOMMENDATION: (ANNUAL) - Recommend routine annual screening mammography. [id number] 1 year screening LATERALITY: (B)
== END 2020-02-03 14:00 | disposition home or self-care (01) ==
LOC: DI 13:59
PROVIDERS: ATTEND Nurse Practitioner
DX: Z12.31 Encounter for screening mammogram for malignant neoplasm of breast (principal); Z80.3 Family history of malignant neoplasm of breast
CPT/HCPCS: 77063; 77067

== ENCOUNTER 2020-04-22 15:12 | Outpatient (CLI) | payer OTHER ==
--- NOTE | 2020-04-22 16:45 | DEXA Report ---
PROCEDURE: Dexa Spine and/or Hip INDICATIONS: POSTMENOPAUSAL TECHNIQUE: Dual energy x-ray absorptiometry (DXA) was performed on a [employer] System. Regions measur ed are the AP Spine, femoral neck, and if needed forearm. COMPARISON: DEXA 04/18/2018 FINDINGS: Lumbar Spine: Bone Mineral Density 1.435 g/cm/cm,T score 2.1, compared to 2.7 on prior exam. Left Hip: Bone Mineral Density 1.224 g/cm/cm,T score 1.7, compared to 1.9 on prior exam. Left Femoral Neck: Bone Mineral Density 1.112 g/cm/cm, T score 0.5, compared to 1.1 on prior exam. (T score greater or equal to -1.0: NORMAL) (T score from -1.1 to -2.4: OSTEOPENIA) (T score less than or equal to -2.5 to: OSTEOPOROSIS) Impression: No osteopenia or osteoporosis. Mild loss of bone density is noted compared to 2019. Patients with diagnosis of osteoporosis or osteopenia should have regular bone mineral density assess ment. For those eligible for Medicare, routine testing is allowed once every 2 years. Testing frequ ency can be increased for patients who have rapidly progressing disease or for those who are receivin g medical therapy to restore bone mass. Reviewed by: Paty Thompson MD on 04/22/2020 4:43 PM PST Approved by: Paty Thompson MD on 04/22/2020 4:43 PM PST Station ID: [id number]
== END 2020-04-22 15:13 | disposition home or self-care (01) ==
LOC: DI 15:12
PROVIDERS: ATTEND Internal Medicine Hematology & Oncology
DX: Z78.0 Asymptomatic menopausal state (principal)

== ENCOUNTER 2021-01-15 08:00 | Outpatient (CLI) | payer OTHER ==
--- NOTE | 2021-01-16 10:37 | XRAY Report ---
PROCEDURE: Lumbar Spine 2 View INDICATIONS: LOW BACK PAIN TECHNIQUE: 3 views of the lumbar spine were acquired. COMPARISON: None. FINDINGS: Bones: 5 [id number]-oqfaniz vertebrae are present. There is normal bony alignment. No vertebral body compression fractures. No suspicious bony lesions. There is endplate degenerative changes and facet arthropathy noted throughout the spine with mild intervertebral disc space loss noted from L3 L4-L5 S1. Soft tissues: Overlying bowel gas pattern is normal. Punctate calcifications are noted overlying the renal shadows. Pelvic phleboliths. IMPRESSION: Multilevel lumbar spondylosis worst from L3 L4-L5 S1 where there is at least mild intervertebral disc space loss. Likely renal nephroliths. Reviewed by: Avel Grover DO on 01/16/2021 9:35 AM JUAN Approved by: Avel Grover DO on 01/16/2021 9:35 AM JUAN Station ID: [id number]
== END 2021-01-15 23:59 | disposition home or self-care (01) ==
LOC: DI.N 08:00
PROVIDERS: ATTEND Family Medicine
DX: M47.816 Spondylosis without myelopathy or radiculopathy, lumbar region (principal); M47.817 Spondylosis without myelopathy or radiculopathy, lumbosacral region; M51.36 Other intervertebral disc degeneration, lumbar region; M51.37 Other intervertebral disc degeneration, lumbosacral region

== ENCOUNTER 2021-03-05 07:48 | Outpatient (CLI) | payer OTHER ==
--- NOTE | 2021-03-08 14:00 | Mammography Report ---
BILATERAL DIGITAL DIAGNOSTIC MAMMOGRAM 3D/2D: 03/05/2021 CLINICAL: Routine screening. Personal history of left breast cancer. Comparison is made to exams dated: 02/03/2020 mammogram, 04/15/2019 mammogram, 10/23/2018 mammogram, mammogram, 09/28/2017 mammogram, and 02/16/2017 ultrasound - [facility]. Th ere are scattered fibroglandular elements in both breasts. The patient is status post lumpectomy left breast at 3 o'clock. The left breast has post-operative f indings. There is benign fat necrosis in the left breast at 1 o'clock anterior depth. This is not significant ly changed. No other significant masses, calcifications, or other findings are seen in either breast. Mammograms are otherwise stable. IMPRESSION: BENIGN There is no mammographic evidence of malignancy. Return to annual mammogram screening schedule is rec ommended. Findings and recommendations were conveyed to the patient at time of exam. This exam was interpreted at Station ID: [id number]. NOTE: For mammograms, a report in lay terms will be sent to the patient. Approximately 15% of breast malignancies will not be visualized mammographically. In the management of a palpable breast mass, a negative mammogram must not discourage biopsy of a clinically suspicious lesion. Electronically Signed By: Sapphire lai/:03/05/2021 08:51:06 ACR BI-RADS Category 2: Benign Finding(s) 3342F PARENCHYMAL PATTERN: (A) - The breast(s) demonstrate(s) scattered fibroglandular densities. BI-RADS CATEGORY: (2) - 2 Mammogram [id number] return to screening LATERALITY: (B)
== END 2021-03-05 07:49 | disposition home or self-care (01) ==
LOC: DI 07:48
PROVIDERS: ATTEND Internal Medicine Hematology & Oncology
DX: C50.919 Malignant neoplasm of unspecified site of unspecified female breast (principal); C50.912 Malignant neoplasm of unspecified site of left female breast; C50.512 Malignant neoplasm of lower-outer quadrant of left female breast

== ENCOUNTER 2021-09-30 11:57 | Outpatient (CLI) | payer OTHER ==
[2021-09-30 12:11] LABS: BASOPHILS % (AUTO) 0.6 %; EOSINOPHILS # (AUTO) 0.2 10^3/uL (0.0-0.7); EOSINOPHILS % (AUTO) 2.9 %; HCT - HEMATOCRIT 45.9 % (37.0-47.0); HGB - HEMOGLOBIN 15.7 g/dL (12.0-16.0); LYMPHOCYTES # (AUTO) 2.1 10^3/uL (1.5-3.5); LYMPHOCYTES % (AUTO) 38.7 %; MEAN CORPUSCULAR HEMOGLOBIN 31.4 pg (27.0-31.0); MEAN CORPUSCULAR HGB CONC 34.2 g/dL (32.0-36.0); MEAN CORPUSCULAR VOLUME 91.8 fL (81.0-99.0); MEAN PLATELET VOLUME 8.4 fL (7.9-10.8); MONOCYTES # (AUTO) 0.5 10^3/uL (0.0-1.0); MONOCYTES % (AUTO) 8.3 %; NEUTROPHILS # (AUTO) 2.7 10^3/uL (1.5-6.6); NEUTROPHILS % (AUTO) 49.1 %; PLT - PLATELET COUNT 259 10^3/uL (130-450); RED CELL DISTRIBUTION WIDTH 13.1 % (12.0-15.0); WHITE BLOOD COUNT 5.4 x10^3/uL (4.8-10.8)
[2021-09-30 12:33] LABS: ALBUMIN 4.5 g/dL (3.2-5.5); ALBUMIN/GLOBULIN RATIO 1.5 (1.0-2.2); ALKALINE PHOSPHATASE 64 IU/L (42-121); ALT ALANINE AMINOTRANSFERASE 22 IU/L (10-60); AST ASPARTATE AMINOTRANSFERASE 16 IU/L (10-42); BILIRUBIN,TOTAL 0.6 mg/dL (0.2-1.0); BUN - BLOOD UREA NITROGEN 24 mg/dL (6-20); CALCIUM 9.6 mg/dL (8.5-10.3); CARBON DIOXIDE - CO2 24 mmol/L (21-32); CHLORIDE 108 mmol/L (101-111); CHOL/HDL RATIO 3.2 (<4.4); CHOLESTEROL 172 mg/dL; CREATININE 1.2 mg/dL (0.4-1.0); GFR - MDRD 46 (>89); GLUCOSE 104 mg/dL (70-100); HDL CHOLESTEROL 53 mg/dL; LDL CHOLESTEROL,CALCULATED 101 mg/dL; LDL/HDL RATIO 1.9 (<4.4); POTASSIUM 3.9 mmol/L (3.5-5.0); SODIUM 139 mmol/L (135-145); TOTAL PROTEIN 7.5 g/dL (6.7-8.2); TRIGLYCERIDES 90 mg/dL; VLDL CHOLESTEROL 18 mg/dL
[2021-09-30 12:41] LABS: THYROID STIMULATING HORMONE 1.35 uIU/mL (0.34-5.60)
== END 2021-09-30 11:58 | disposition home or self-care (01) ==
LOC: LAB 11:57
PROVIDERS: ATTEND Nurse Practitioner
DX: I10 Essential (primary) hypertension (principal); R53.83 Other fatigue; E78.5 Hyperlipidemia, unspecified
CPT/HCPCS: 36415; 80053; 80061; 83721; 84443; 85025

== ENCOUNTER 2022-03-22 12:35 | Outpatient (CLI) | payer OTHER ==
--- NOTE | 2022-03-23 13:31 | Mammography Report ---
BILATERAL DIGITAL SCREENING MAMMOGRAM 3D/2D WITH EXAGGERATED CC: 03/22/2022 CLINICAL: Routine screening. Personal history of left breast cancer. Comparison is made to exams dated: 03/05/2021 mammogram, 02/03/2020 mammogram, 04/15/2019 mammogram, mammogram, and 04/18/2018 mammogram - [facility]. There are scattered areas of fibroglandular density in both breasts (category b / 25%-50% glandular t issue). There are benign calcifications in both breasts. There also are benign post operative findings in th e left breast. No significant masses, calcifications, or other findings are seen in either breast. There has been no significant interval change. IMPRESSION: BENIGN There is no mammographic evidence of malignancy. A 1 year screening mammogram is recommended. This exam was interpreted at Station ID: [id number]. NOTE: For mammograms, a report in lay terms will be sent to the patient. Approximately 15% of breast malignancies will not be visualized mammographically. In the management of a palpable breast mass, a negative mammogram must not discourage biopsy of a clinically suspicious lesion. Electronically Signed By: Ravi Escobar M.D. aty/bjrad:03/22/2022 15:16:20 ACR BI-RADS Category 2: Benign Finding(s) 3342F PARENCHYMAL PATTERN: (A) - The breast(s) demonstrate(s) scattered fibroglandular densities. BI-RADS CATEGORY: (2) - 2 RECOMMENDATION: (ANNUAL) - Recommend routine annual screening mammography. [id number] 1 year screening LATERALITY: (B)
== END 2022-03-22 12:36 | disposition home or self-care (01) ==
LOC: DI 12:35
PROVIDERS: ATTEND Nurse Practitioner
DX: Z12.31 Encounter for screening mammogram for malignant neoplasm of breast (principal); Z85.3 Personal history of malignant neoplasm of breast

== ENCOUNTER 2022-03-25 07:22 | Day surgery (SDC) | payer OTHER ==
[2022-03-25] MEDS ORDERED: LACTATED RINGERS 1,000 ML IV ONE (07:43)
--- NOTE | 2022-03-25 08:17 | ANESTHESIA ---
Pre-Anesthesia VS, & Labs - Diagnosis screening exam - Procedure colonoscopy Vital Signs: Temp Pulse Resp BP Pulse Ox O2 Flow Rate 36.9 C 97 15 175/78 H 97 03/25/22 07:35 03/25/22 07:35 03/25/22 07:35 03/25/22 07:35 03/25/22 07:35 Height: 5 ft 8 in Weight (kg): 99 kg Body Mass Index: 33.2 BMI Classification: Obese - NPO >8 hours - Is Patient ?: No Home Medications and Allergies Cholecalciferol (Vitamin D3) [Vitamin D3] 4,000 unit PO DAILY 12/10/15 Doxycycline Monohydrate 50 mg PO DAILY 12/10/15 Pravastatin [Pravachol] 10 mg PO DAILY 12/10/15 acetaZOLAMIDE ER [Diamox ER] 500 mg PO BID 12/10/15 Cyanocobalamin (Vitamin B-12) [Vitamin B-12] 2,000 mcg PO DAILY PM 01/03/17 Albuterol 2.5 mg INH Q4H PRN 01/04/17 EPINEPHrine [Epipen 2-Yan] 1 each IM PRN PRN 01/04/17 Allergies/Adverse Reactions: Allergies Allergy/AdvReac Type Severity Reaction Status Date / Time azithromycin [From Zithromax] Allergy Itching Verified 05/03/21 12:36 bee venom protein (honey bee) Allergy Unknown Verified 05/03/21 12:36 dust AdvReac Unknown Uncoded 05/03/21 12:36 mold AdvReac Unknown Uncoded 05/03/21 12:36 Anes History & Medical History - Anesthetic History Anesthesia Complications: reports: No previous complications - Medical History Cardiovascular: reports: High cholesterol Pulmonary: reports: Asthma Gastrointestinal: reports: Colon polyps Urinary: reports: None Neuro: reports: None Musculoskeletal: reports: Osteoarthritis Endocrine/Autoimmune: reports: None Blood Disorders: reports: None Skin: reports: Rosacea Smoking Status: Never smoker Psychosocial: reports: No issues indicated History of Cancer?: Yes (breast cancer, s/p radiation) - Surgical History General: reports: Colonoscopy Eyes Ears Nose Throat (EENT): reports: Tonsil/Adenoidectomy Gynecologic: reports: Hysterectomy, Breast reduction, Other Exam General: Alert, Oriented x3, Cooperative, No acute distress Dental: WNL Mouth Openin Fingerbreadth Neck Mobility: Normal Mallampati classification: II Thyromental Distance: 4-6 cm Mental/Cognitive Status: Alert/Oriented X3, Normal for patient Plan Anesthesia Type: General, Total IV Consent for Procedure(s) Verified and Reviewed: Yes Code Status: Attempt Resuscitation ASA classification: 2-Mild systemic disease Is this case an emergency?: No
[2022-03-25] MEDS ORDERED: PROPOFOL 500 MG/50 ML 500 MG/50 ML VIAL ONE (08:44)
[2022-03-25] MEDS ORDERED: fentaNYL 100 MCG/2 ML VIAL ONE (08:45)
[2022-03-25] MEDS ORDERED: MIDAZOLAM 2 MG/2 ML VIAL ONE (08:45)
[2022-03-25] MEDS ORDERED: LACTATED RINGERS 500 ML IV ONE (09:11)
[2022-03-25 09:32] VITALS: BP 139/74
--- NOTE | 2022-03-25 10:29 | ANESTHESIA POST OP EVALUATION ---
Anesthesia Post Eval - Post Anesthesia Eval Vitals: Last Vital Signs Temp 36.2 C L 03/25/22 09:31 Pulse 67 03/25/22 09:31 Resp 16 03/25/22 09:31 BP 139/74 H 03/25/22 09:31 Pulse Ox 99 03/25/22 09:31 O2 Flow Rate CV Function Including HR & BP: Stable Pain Control: Satisfactory Nausea & Vomiting: Negative Mental Status: Baseline Respiratory Status: Airway Patent Hydration Status: Satisfactory Anesthesia Complications: None
== END 2022-03-25 07:23 | disposition home or self-care (01) ==
LOC: SDS 07:22
PROVIDERS: ATTEND Surgery
PROC: 0DBP8ZZ Excision of Rectum, Via Natural or Artificial Opening Endoscopic (ICD-10-PCS; principal; 2022-03-25 08:30)
DX: Z12.11 Encounter for screening for malignant neoplasm of colon (principal); K62.1 Rectal polyp; K57.30 Diverticulosis of large intestine without perforation or abscess without bleeding; E66.9 Obesity, unspecified; Z68.33 Body mass index [BMI] 33.0-33.9, adult; J45.909 Unspecified asthma, uncomplicated
CPT/HCPCS: 45380; J7120

== ENCOUNTER 2022-04-28 15:16 | Outpatient (CLI) | payer OTHER ==
--- NOTE | 2022-04-29 10:36 | DEXA Report ---
PROCEDURE: Dexa Spine and/or Hip INDICATIONS: POST MENOPAUSAL TECHNIQUE: Dual energy x-ray absorptiometry (DXA) was performed on a [employer] System. Regions measur ed are the AP Spine, femoral neck, and if needed forearm. COMPARISON: None. FINDINGS: Lumbar Spine: Bone Mineral Density 1.407 g/cm/cm,T score 1.9, normal Left Femoral Neck: Bone Mineral Density 1.058 g/cm/cm, T score 0.1, normal Left Hip: Bone Mineral Density 1.201 g/cm/cm,T score 1.5, normal Impression: Normal bone mineral density. Patients with diagnosis of osteoporosis or osteopenia should have regular bone mineral density assess ment. For those eligible for Medicare, routine testing is allowed once every 2 years. Testing frequ ency can be increased for patients who have rapidly progressing disease or for those who are receivin g medical therapy to restore bone mass. Reviewed by: Daryl Wallace MD on 04/29/2022 10:35 AM [facility] Approved by: Daryl Wallace MD on 04/29/2022 10:35 AM PST Station ID: [id number]
== END 2022-04-28 15:17 | disposition home or self-care (01) ==
LOC: DI 15:16
PROVIDERS: ATTEND Physician Assistant
DX: Z78.0 Asymptomatic menopausal state (principal); Z85.3 Personal history of malignant neoplasm of breast; Z51.81 Encounter for therapeutic drug level monitoring

== ENCOUNTER 2023-02-13 15:53 | Outpatient (CLI) | payer OTHER ==
--- NOTE | 2023-02-13 17:08 | XRAY Report ---
PROCEDURE: Foot 3 View BILAT INDICATIONS: BL FOOT PAIN TECHNIQUE: 3 views of the foot were acquired. COMPARISON: None. FINDINGS: Bones: No fractures or dislocations. Mild bilateral hallux valgus is seen with [id number] bila teral first MTP joint and first through fifth interphalangeal joint osteoarthritic changes slightly w orse on the right side. No suspicious bony lesions. Soft tissues: No suspicious soft tissue calcifications or masses. IMPRESSION: No acute fracture or dislocation. Mild bilateral hallux valgus and mild bilateral forefoot joint oste oarthritis. Reviewed by: Noah Dahl MD on 02/13/2023 5:06 PM PST Approved by: Noah Dahl MD on 02/13/2023 5:06 PM PST Station ID: [id number]
== END 2023-02-13 15:54 | disposition home or self-care (01) ==
LOC: DI 15:53
PROVIDERS: ATTEND Podiatrist
DX: M20.12 Hallux valgus (acquired), left foot (principal); M20.11 Hallux valgus (acquired), right foot; M19.072 Primary osteoarthritis, left ankle and foot; M19.071 Primary osteoarthritis, right ankle and foot

== ENCOUNTER 2023-03-31 08:00 | Outpatient (CLI) | payer OTHER ==
--- NOTE | 2023-04-05 12:59 | Mammography Report ---
BILATERAL DIGITAL SCREENING MAMMOGRAM 3D/2D WITH EXAGGERATED CC: 03/31/2023 CLINICAL: Routine screening. Personal history of left breast cancer. Comparison is made to exams dated: 03/22/2022 mammogram, 03/05/2021 mammogram, 02/03/2020 mammogram, mammogram, 10/23/2018 mammogram, and 04/18/2018 mammogram - [facility]. There are scattered areas of fibroglandular density in both breasts (category b / 25%-50% glandular t issue). There are benign calcifications in both breasts. There also are benign post operative findings in th e left breast. No significant masses, calcifications, or other findings are seen in either breast. There has been no significant interval change. IMPRESSION: BENIGN There is no mammographic evidence of malignancy. A 1 year screening mammogram is recommended. This exam was interpreted at Station ID: [id number]. NOTE: For mammograms, a report in lay terms will be sent to the patient. Approximately 15% of breast malignancies will not be visualized mammographically. In the management of a palpable breast mass, a negative mammogram must not discourage biopsy of a clinically suspicious lesion. Electronically Signed By: Vikram painter/lauren:03/31/2023 08:58:34 letter sent: No_Letter ACR BI-RADS Category 2: Benign Finding(s) 3342F PARENCHYMAL PATTERN: (A) - The breast(s) demonstrate(s) scattered fibroglandular densities. BI-RADS CATEGORY: (2) - 2 Mammogram [id number] 1 year screening LATERALITY: (B)
== END 2023-03-31 08:01 | disposition home or self-care (01) ==
LOC: DI 08:00
DX: Z12.31 Encounter for screening mammogram for malignant neoplasm of breast (principal); R92.323 Mammographic fibroglandular density, bilateral breasts; Z85.3 Personal history of malignant neoplasm of breast

== ENCOUNTER 2023-07-08 16:32 | Outpatient (CLI) | payer OTHER ==
[2023-07-08 16:48] LABS: BASOPHILS # (AUTO) 0.1 10^3/uL (0.0-0.1); BASOPHILS % (AUTO) 0.4 %; EOSINOPHILS % (AUTO) 0.2 %; HCT - HEMATOCRIT 44.9 % (37.0-47.0); HGB - HEMOGLOBIN 14.7 g/dL (12.0-16.0); LYMPHOCYTES # (AUTO) 1.4 10^3/uL (1.5-3.5); LYMPHOCYTES % (AUTO) 11.8 %; MEAN CORPUSCULAR HEMOGLOBIN 30.1 pg (27.0-31.0); MEAN CORPUSCULAR HGB CONC 32.7 g/dL (32.0-36.0); MEAN PLATELET VOLUME 7.9 fL (7.9-10.8); MONOCYTES # (AUTO) 0.9 10^3/uL (0.0-1.0); MONOCYTES % (AUTO) 7.4 %; NEUTROPHILS # (AUTO) 9.2 10^3/uL (1.5-6.6); NEUTROPHILS % (AUTO) 79.9 %; PLT - PLATELET COUNT 449 10^3/uL (130-450); RED BLOOD COUNT 4.88 10^6/uL (4.20-5.40); RED CELL DISTRIBUTION WIDTH 12.6 % (12.0-15.0); WHITE BLOOD COUNT 11.5 x10^3/uL (4.8-10.8)
[2023-07-08 17:05] LABS: ALBUMIN 4.4 g/dL (3.2-5.5); ALBUMIN/GLOBULIN RATIO 1.2 (1.0-2.2); BILIRUBIN,TOTAL 0.4 mg/dL (0.2-1.0); CALCIUM 10.3 mg/dL (8.5-10.3); CREATININE 1.8 mg/dL (0.6-1.3)
[2023-07-08 18:09] LABS: BILIRUBIN,URINE NEGATIVE (NEGATIVE); GLUCOSE, URINE (UA) NEGATIVE (NEGATIVE); KETONES,URINE (UA) TRACE mg/dL (NEGATIVE); LEUKOCYTE ESTERASE, URINE NEGATIVE (NEGATIVE); NITRITE,URINE NEGATIVE (NEGATIVE); OCCULT BLOOD,URINE MODERATE (NEGATIVE); PROTEIN,URINE NEGATIVE (NEGATIVE); UROBILINOGEN,URINE 0.2 (NORMAL) E.U./dL (NORMAL)
[2023-07-08 18:15] LABS: BACTERIA,URINE Rare /HPF (None Seen); CLARITY,URINE CLEAR (CLEAR); SQUAMOUS EPITHELIAL CELL,UR RARE Squamous (<= Few); WBC,URINE 0-3 /HPF (0-5)
[2023-07-08 21:17] LABS: ESTIMATED AVERAGE GLUCOSE 120 mg/dL (70-100); HEMOGLOBIN A1c% 5.8 % (4.27-6.07)
== END 2023-07-08 16:33 | disposition home or self-care (01) ==
LOC: LAB 16:32
PROVIDERS: ATTEND Registered Nurse
DX: D72.829 Elevated white blood cell count, unspecified (principal); R94.4 Abnormal results of kidney function studies; R10.9 Unspecified abdominal pain; R10.13 Epigastric pain; R73.9 Hyperglycemia, unspecified; R34 Anuria and oliguria; M54.50 Low back pain, unspecified
CPT/HCPCS: 36415; 80053; 81001; 83036; 83690; 85025; 87086

== ENCOUNTER 2023-08-22 07:09 | Outpatient (CLI) | payer OTHER ==
[2023-08-22 07:26] LABS: BASOPHILS % (AUTO) 0.4 %; EOSINOPHILS # (AUTO) 0.1 10^3/uL (0.0-0.7); EOSINOPHILS % (AUTO) 1.5 %; HGB - HEMOGLOBIN 13.1 g/dL (12.0-16.0); LYMPHOCYTES # (AUTO) 1.4 10^3/uL (1.5-3.5); LYMPHOCYTES % (AUTO) 25.6 %; MEAN CORPUSCULAR HEMOGLOBIN 30.8 pg (27.0-31.0); MEAN CORPUSCULAR HGB CONC 32.8 g/dL (32.0-36.0); MEAN CORPUSCULAR VOLUME 94.1 fL (81.0-99.0); MEAN PLATELET VOLUME 8.6 fL (7.9-10.8); MONOCYTES # (AUTO) 0.5 10^3/uL (0.0-1.0); MONOCYTES % (AUTO) 8.8 %; NEUTROPHILS # (AUTO) 3.5 10^3/uL (1.5-6.6); NEUTROPHILS % (AUTO) 63.5 %; PLT - PLATELET COUNT 237 10^3/uL (130-450); RED BLOOD COUNT 4.25 10^6/uL (4.20-5.40); RED CELL DISTRIBUTION WIDTH 14.7 % (12.0-15.0); WHITE BLOOD COUNT 5.4 x10^3/uL (4.8-10.8)
[2023-08-22 07:38] LABS: ALBUMIN 4.3 g/dL (3.2-5.5); ALBUMIN/GLOBULIN RATIO 1.7 (1.0-2.2); ALKALINE PHOSPHATASE 53 IU/L (42-121); ALT ALANINE AMINOTRANSFERASE 14 IU/L (10-60); AST ASPARTATE AMINOTRANSFERASE 12 IU/L (10-42); BILIRUBIN,TOTAL 0.4 mg/dL (0.2-1.0); BUN - BLOOD UREA NITROGEN 27 mg/dL (6-20); CALCIUM 9.9 mg/dL (8.5-10.3); CARBON DIOXIDE - CO2 22 mmol/L (21-32); CHLORIDE 111 mmol/L (101-111); CHOL/HDL RATIO 2.5 (<4.4); CHOLESTEROL 154 mg/dL; CREATININE 1.4 mg/dL (0.6-1.3); GFR - MDRD 38 (>89); GLUCOSE 111 mg/dL (74-104); HDL CHOLESTEROL 61 mg/dL; LDL CHOLESTEROL,CALCULATED 82 mg/dL; LDL/HDL RATIO 1.3 (<4.4); SODIUM 140 mmol/L (135-145); TOTAL PROTEIN 6.8 g/dL (6.4-8.9); TRIGLYCERIDES 55 mg/dL (48-352); VLDL CHOLESTEROL 11 mg/dL
[2023-08-22 07:53] LABS: THYROID STIMULATING HORMONE 2.32 uIU/mL (0.34-5.60)
== END 2023-08-22 07:10 | disposition home or self-care (01) ==
LOC: LAB 07:09
PROVIDERS: ATTEND Nurse Practitioner
DX: E78.5 Hyperlipidemia, unspecified (principal); N28.9 Disorder of kidney and ureter, unspecified; R53.83 Other fatigue; Z51.81 Encounter for therapeutic drug level monitoring; Z79.899 Other long term (current) drug therapy
CPT/HCPCS: 36415; 80053; 80061; 83721; 84443; 85025

== ENCOUNTER 2023-09-08 07:14 | Outpatient (CLI) | payer OTHER ==
[2023-09-08 07:50] LABS: URIC ACID 5.2 mg/dL (2.3-6.6)
== END 2023-09-08 07:15 | disposition home or self-care (01) ==
LOC: LAB 07:14
PROVIDERS: ATTEND Internal Medicine Nephrology
DX: N25.81 Secondary hyperparathyroidism of renal origin (principal); M10.00 Idiopathic gout, unspecified site
CPT/HCPCS: 36415; 83970; 84550

== ENCOUNTER 2023-09-12 07:26 | Outpatient (CLI) | payer OTHER ==
[2023-09-12 07:58] LABS: CREATININE 1.3 mg/dL (0.6-1.3)
== END 2023-09-12 07:27 | disposition home or self-care (01) ==
LOC: LAB 07:26
PROVIDERS: ATTEND Internal Medicine Nephrology
DX: N25.81 Secondary hyperparathyroidism of renal origin (principal); M10.00 Idiopathic gout, unspecified site; M31.30 Wegener's granulomatosis without renal involvement; I77.6 Arteritis, unspecified; N05.9 Unspecified nephritic syndrome with unspecified morphologic changes; D47.2 Monoclonal gammopathy
CPT/HCPCS: 36415; 82565; 82784; 83516; 83970; 84155; 84165; 84550; 86334

== ENCOUNTER 2023-09-15 15:37 | Outpatient (CLI) | payer OTHER ==
--- NOTE | 2023-09-15 19:47 | Ultrasound Report ---
PROCEDURE: Renal (Retroperitoneal) INDICATIONS: KIDNEY DYSFUNCTION TECHNIQUE: Real-time scanning was performed of the retroperitoneal organs, with image documentation. COMPARISON: CT abdomen and pelvis with contrast dated 01/04/2020. FINDINGS: Kidneys: Kidneys are normal in size. Right kidney measures 10.4 cm long; left kidney measures 9.0 c m long. Right renal cortical thickness is 0.8 cm; left renal cortical thickness is 0.5 cm. No solid renal masses. Bilateral renal stones are noted. There is a right middle pole echogenic focus consiste nt with a stone measuring 0.5 x 0.4 x 0.7 cm. There is an echogenic lesion in the left lower pole con sistent with a stone measuring 0.6 x 0.7 x 0.4 cm. Bladder: Pre-void bladder volume is 141.8 mL. Post-void residual is 18.2 mL. Pre-void images demon strate no intraluminal masses or stones. On pre-void images, bilateral ureteral jets are noted with color Doppler interrogation. (Of note, ureteral jets may not be detectable in up to 25% of cases due to insufficient differences in specific gravity between ureteral and bladder urine). Miscellaneous: No free abdominal fluid. IMPRESSION: 1. Bilateral nephrolithiasis. 2. No hydronephrosis. Normal size kidneys. Reviewed by: Jalen Andrew MD on 09/15/2023 7:46 PM PDT Approved by: Jalen Andrew MD on 09/15/2023 7:46 PM PDT Station ID: [id number]
== END 2023-09-15 15:38 | disposition home or self-care (01) ==
LOC: DI 15:37
PROVIDERS: ATTEND Internal Medicine Nephrology
DX: N20.0 Calculus of kidney (principal)

== ENCOUNTER 2023-10-02 08:33 | Outpatient (CLI) | payer OTHER ==
[2023-10-02 08:49] LABS: BASOPHILS % (AUTO) 0.8 %; EOSINOPHILS # (AUTO) 0.2 10^3/uL (0.0-0.7); EOSINOPHILS % (AUTO) 3.7 %; HCT - HEMATOCRIT 44.2 % (37.0-47.0); HGB - HEMOGLOBIN 14.5 g/dL (12.0-16.0); LYMPHOCYTES # (AUTO) 1.7 10^3/uL (1.5-3.5); LYMPHOCYTES % (AUTO) 33.7 %; MEAN CORPUSCULAR HEMOGLOBIN 31.4 pg (27.0-31.0); MEAN CORPUSCULAR HGB CONC 32.8 g/dL (32.0-36.0); MEAN CORPUSCULAR VOLUME 95.7 fL (81.0-99.0); MEAN PLATELET VOLUME 8.4 fL (7.9-10.8); MONOCYTES # (AUTO) 0.4 10^3/uL (0.0-1.0); MONOCYTES % (AUTO) 7.4 %; NEUTROPHILS # (AUTO) 2.8 10^3/uL (1.5-6.6); NEUTROPHILS % (AUTO) 54.2 %; PLT - PLATELET COUNT 264 10^3/uL (130-450); RED BLOOD COUNT 4.62 10^6/uL (4.20-5.40); RED CELL DISTRIBUTION WIDTH 13.6 % (12.0-15.0); WHITE BLOOD COUNT 5.1 x10^3/uL (4.8-10.8)
[2023-10-02 09:06] LABS: CALCIUM 9.9 mg/dL (8.5-10.3); CREATININE 1.3 mg/dL (0.6-1.3); POTASSIUM 4.4 mmol/L (3.5-4.5)
[2023-10-02 09:29] LABS: FERRITIN 116.7 ng/mL (11.0-306.8)
== END 2023-10-02 08:34 | disposition home or self-care (01) ==
LOC: LAB 08:33
PROVIDERS: ATTEND Internal Medicine Nephrology
DX: E11.9 Type 2 diabetes mellitus without complications (principal); N05.9 Unspecified nephritic syndrome with unspecified morphologic changes; D50.0 Iron deficiency anemia secondary to blood loss (chronic); D51.9 Vitamin B12 deficiency anemia, unspecified; D70.9 Neutropenia, unspecified; D63.1 Anemia in chronic kidney disease
CPT/HCPCS: 36415; 80048; 82607; 82728; 82746; 83540; 84466; 85025

== ENCOUNTER 2023-10-04 09:44 | Outpatient (CLI) | payer OTHER ==
[2023-10-04 10:25] LABS: FECAL OCCULT BLOOD (FIT) NEGATIVE (NEGATIVE)
== END 2023-10-04 09:45 | disposition home or self-care (01) ==
LOC: LAB.R 09:44
PROVIDERS: ATTEND Internal Medicine Nephrology
DX: D50.0 Iron deficiency anemia secondary to blood loss (chronic) (principal)
CPT/HCPCS: 82274